=== PATIENT | male | born 1965 | race Caucasian/White ===

== ENCOUNTER 2019-06-12 05:30 | Observation (INO) ==
--- NOTE | 2019-06-04 12:16 | PAT Medication Instructions ---
Medication Instructions Date of Service June 04, 2019 Home Medications multivitamin 1 cap PO QAM DO NOT take the morning of surgery multivitamin 1 cap PO QAM Other Notes If you have any questions please call us at [phone] or [phone] or [phone] or [phone]
--- NOTE | 2019-06-05 13:06 | Anesthesiology Consultation ---
Date of Service June 05, 2019 Assessment & Plan (1) Encounter for pre-operative examination: Chart Review Chart Review: Acceptable Risk for Surgery (pending preop labs) and Patient seen in Pre Admission Testing Teaching & Discussion Pre-Anesthesia Teaching/Discussion Notes: Instructed NPO after midnight before surgery,except medications with 15 cc of water. Medication instructions provided according to the PAT guidelines. History Surgery Operation Date: 06/12/19 07:30 Proposed Procedures p Robotic Assisted Laparoscopic Radical Prostatectomy, Bilateral Pelvic Lymph Node Dissection, Suprapubic Catheter - Skip Garcia MD Height/Weight Height: 6 ft 1 in Weight: 87.7 kg Allergies Allergy/AdvReac Type Severity Reaction Status Date / Time Penicillins Allergy Unknown UNKNOWN Verified 06/05/19 13:15 ( CHILD) Medications Home Medications Medication Instructions Recorded Confirmed Last Taken multivitamin 1 cap PO QAM 06/03/19 06/03/19 Unknown Past Medical History Medical History Malignant neoplasm of prostate Exercise / Class Metabolic Activity II 4-5 Yardwork/Stairs/Walk up hill Past Family History Family History Son Diabetes Father Heart disease Past Surgical History Surgical History Hx of prostate biopsy Hx of wisdom tooth extraction Past Anesthesia History No Hx of Anesthesia Complications and No Family Hx of Anesthesia Complications History of PONV No Hx of PONV and No Hx of Motion Sickness Social History Smoking Status: Never smoker Do You Dip or Chew Tobacco: No Hx Alcohol Use: Yes Alcohol type: wine alcohol intake frequency: holidays/special occasions only Hx Substance Use: No substance use type: does not use Review of Systems Patient denies chest pain, shortness of breath, dyspnea on exertion, cough, wheezing, palpitations. Physical Exam Vital Signs VITALS BP 119/74 P 66 TEMP 98.4 SP02 97%RA RESP 18 PHYSICAL Full neck and c-spine range of motion. Full TMJ range of motion. TMD 4 finger breaths Mallampati Score 1 Dentition: missing molars Lungs: clear throughout to auscultation Cardiac: regular rate and rhythm, no murmurs noted Spine: normal Carotid arteries: negative bruit Extremities: no edema Testing Electrocardiogram Date: 09/24/19 NSR at 67bpm. Possible LAE. iRBBB. Chest X-Ray Date: 06/05/19 Findings: + NAD
--- NOTE | 2019-06-05 13:59 | XRay Report ---
XR chest Pre-admission PA/Lat CLINICAL HISTORY: pat preoperative evaluation COMPARISON STUDY: No previous studies for comparison. FINDINGS: The bones soft tissues and hemidiaphragms are normal. The cardiomediastinal silhouette is n ormal. The lungs are clear. The pulmonary vasculature is normal. IMPRESSION: Negative chest. ACT 112: Negative or not required by law. The above report was generated using voice recognition software. It may contain grammatical, syntax or spelling errors. Electronically signed by: Mohsen Hines M.D. 06/05/2019 1:58 PM
[2019-06-05 15:07] LABS: Basophils # (auto) 0.04 K/uL (0-0.2); Basophils % (auto) 0.8 %; Hematocrit (blood only) 43.9 % (42-52); Hemoglobin 15.2 g/dL (14.0-18.0); Lymphocytes # (auto) 1.12 K/uL (1.2-3.4); Lymphocytes % (auto) 22.6 %; Mean Corpuscular Hemoglobin 30.9 pg (25-34); Mean Corpuscular Hgb Conc 34.6 g/dL (32-36); Mean Corpuscular Volume 89.2 fL (80-100); Mean Platelet Volume 11.5 fL (7.4-10.4); Monocytes # (auto) 0.28 K/uL (0.11-0.59); Monocytes % (auto) 5.7 %; Neutrophils # (auto) 3.31 K/uL (1.4-6.5); Neutrophils % (auto) 66.9 %; Platelet Count 194 K/uL (130-400); RDW Coefficient of Variation 12.8 % (11.5-14.5); RDW Standard Deviation 41.5 fL (36.4-46.3); Red Blood Count 4.92 M/uL (4.7-6.1); White Blood Count 4.95 K/uL (4.8-10.8)
[2019-06-05 15:13] LABS: BUN Creatinine Ratio 14.2 (10-20); Calcium 9.1 mg/dl (8.5-10.1); Creatinine Clr Calc Pharmacy 107.4 ml/min; Est GFR (African American) 111.2; Potassium 3.5 mmol/L (3.5-5.1)
[2019-06-12] MEDS ORDERED: HEPARIN SOD 5,000 UNIT/0.5 ML VIAL SQ SCH (06:00)
[2019-06-12] MEDS ORDERED: CEFAZOLIN 2000MG 2,000 MG/15 ML SYR IV SCH (06:00)
[2019-06-12] MEDS ORDERED: LACTATED RINGER'S 1,000 ML IV SCH (06:00)
[2019-06-12] MEDS ORDERED: ACETAMINOPHEN 1000 MG/100 ML IV IV SCH (06:00)
[2019-06-12] MEDS ORDERED: fentaNYL citrate 100 MCG/2 ML VIAL ONE (06:44)
[2019-06-12] MEDS ORDERED: ONDANSETRON INJ 2 MG/ML 2 ML VIAL ONE ×2 (06:44→10:55)
[2019-06-12] MEDS ORDERED: LIDOCAINE HCL 2% 2 ML VIAL/AMP(20MG/ML) INFIL ONE (06:44)
[2019-06-12] MEDS ORDERED: ROCURONIUM BROMIDE 10 MG/ML 5 ML VIAL ONE ×4 (06:44→09:50)
[2019-06-12] MEDS ORDERED: DEXAMETHASONE SOD INJ 4 MG/ML VIAL ONE (06:44)
[2019-06-12] MEDS ORDERED: NEOSTIGMINE METHYLSULFATE 5 MG/5 ML SYR ONE (06:44)
[2019-06-12] MEDS ORDERED: GLYCOPYRROLATE 0.2 MG/ML VIAL ONE (06:44)
[2019-06-12] MEDS ORDERED: PROPOFOL IV EMULSION 10 MG/ML 20 ML VIAL IV ONE ×2 (06:44→11:27)
[2019-06-12] MEDS ORDERED: KETOROLAC 30 MG/ML VIAL ONE (06:44)
[2019-06-12] MEDS ORDERED: MIDAZOLAM HCL 1 MG/ML 2ML VIAL ONE (06:44)
--- NOTE | 2019-06-12 06:56 | History & Physical Bridge Note ---
Date of Service June 12, 2019 History & Physical Bridge Note I have examined the patient, reviewed the History & Physical and in the interval since the performance of the History & Physical I have noted the following changes of clinical significance: no changes noted
[2019-06-12] MEDS ORDERED: BUPIVACAINE 0.5 % 5 MG/1 ML MPF 30ML VIAL ONE (07:20)
[2019-06-12] MEDS ORDERED: HYDROmorphone INJ 2 MG/ML SYR/VIAL ONE (07:53)
[2019-06-12] MEDS ORDERED: fentaNYL citrate 100 MCG/2 ML VIAL IV PRN (08:14)
[2019-06-12] MEDS ORDERED: ONDANSETRON INJ 2 MG/ML 2 ML VIAL IV PRN ×2 (08:14→13:09)
[2019-06-12] MEDS ORDERED: ePHEDrine sulfate 50 MG/ML AMP IV PRN (08:14)
[2019-06-12] MEDS ORDERED: METOCLOPRAMIDE HCL INJ 5 MG/ML 2 ML VIAL IV PRN (08:14)
[2019-06-12] MEDS ORDERED: HYDROmorphone INJ 2 MG/ML SYR/VIAL IV PRN (08:14)
[2019-06-12] MEDS ORDERED: PROMETHAZINE HCL 12.5 MG in SODIUM CHLORIDE 0.9% 50 ML IV PRN (08:14)
[2019-06-12] MEDS ORDERED: ATROPINE SULFATE 0.1 MG/ML 10ML SYR IV PRN (08:14)
[2019-06-12] MEDS ORDERED: SURGICEL ABSORB HEMOSTAT 2IN X 14IN TOP ONE (08:47)
[2019-06-12] MEDS ORDERED: FLOSEAL HEMOSTATIC MATRIX 10ML TOP ONE (09:41)
--- NOTE | 2019-06-12 11:51 | Operative Report ---
PG Post Operative Report Pre & Post Diagnosis Operation Date: 06/12/19 07:30 Pre-Op Diagnosis: Prostate Cancer Post-Op Diagnosis: Prostate Cancer I identified the patient and participated in the time-out.: Yes Procedure Operation Date: 06/12/19 07:30 Actual Procedures p Robotic Assisted Laparoscopic Radical Retropubic Prostatectomy, Bilateral Pelvic Lymph Node Dissection, Vesicostomy with repair - Skip Garcia MD Surgeon Skip Garcia MD Shoemaker Apprentice Zak Ross Estimated Blood Loss 100 Findings Consistent with Post-Op Diagnosis Specimens Prostate + SVs, periprostatic fat, R obturator LN, R external iliac nodes, L obturator nodes, bladder neck margin Description of Procedure See above I attest to the content of the Intraoperative Record and any orders documented therein. Any exceptions are noted below.
[2019-06-12 12:29] LABS: Hematocrit (blood only) 41.9 % (42-52); Hemoglobin 14.4 g/dL (14.0-18.0); Mean Corpuscular Hemoglobin 30.4 pg (25-34); Mean Corpuscular Volume 88.4 fL (80-100); Mean Platelet Volume 10.8 fL (7.4-10.4); Platelet Count 181 K/uL (130-400); RDW Coefficient of Variation 12.4 % (11.5-14.5); RDW Standard Deviation 40.4 fL (36.4-46.3); Red Blood Count 4.74 M/uL (4.7-6.1); White Blood Count 11.77 K/uL (4.8-10.8)
[2019-06-12 12:35] LABS: Mean Corpuscular Hgb Conc 34.4 g/dL (32-36)
[2019-06-12 12:46] LABS: BUN Creatinine Ratio 19.5 (10-20); Calcium 8.8 mg/dl (8.5-10.1); Creatinine Clr Calc Pharmacy 95.9 ml/min; Est GFR (Non-African American) 83.7; Potassium 4.2 mmol/L (3.5-5.1)
[2019-06-12 12:52] LABS: Basophils # (auto) 0.02 K/uL (0-0.2); Basophils % (auto) 0.2 %; Eosinophils # (auto) 0.01 K/uL (0-0.5); Eosinophils % (auto) 0.1 %; Immature Granulocytes # (auto) 0.02 K/uL (0.00-0.02); Immature Granulocytes % (auto) 0.2 %; Lymphocytes # (auto) 0.51 K/uL (1.2-3.4); Lymphocytes % (auto) 4.3 %; Monocytes # (auto) 0.07 K/uL (0.11-0.59); Monocytes % (auto) 0.6 %; Neutrophils # (auto) 11.14 K/uL (1.4-6.5); Neutrophils % (auto) 94.6 %
[2019-06-12] MEDS ORDERED: OXYCODONE HCL IR 5 MG TAB (IMMEDIATE RELEASE) PO PRN ×2 (13:09)
[2019-06-12] MEDS ORDERED: HYDROmorphone INJ 1 MG/ML SYRINGE IV PRN ×2 (13:09)
[2019-06-12] MEDS ORDERED: OXYBUTYNIN CHLORIDE 5 MG TAB PO PRN (13:09)
--- NOTE | 2019-06-12 13:19 | Anesthesiology Progress Note ---
Date of Service June 12, 2019 Anesthesia Post Procedure Vital Signs Vital Signs: Temp Pulse Pulse Resp BP Pulse Ox 06/12/19 13:00 36.8 C 94 H 13 139/72 95 06/12/19 12:45 37.1 C 75 16 139/68 97 06/12/19 12:35 72 12 149/68 H 98 06/12/19 12:25 78 12 135/70 98 06/12/19 12:15 74 12 130/63 97 06/12/19 12:06 36.3 C L 84 16 108/63 96 06/12/19 06:04 37.0 C 83 20 132/68 99 Transfer of Care Handoff Completed per policy Notes Mental Status: alert / awake / arousable and participated in evaluation Patient Amnestic to Procedure: Yes Nausea / Vomiting: adequately controlled Pain: adequately controlled Airway Patency, RR, SpO2: stable & adequate BP & HR: stable & adequate Hydration State: stable & adequate Anesthetic Complications: no major complications apparent
[2019-06-12] MEDS: ACETAMINOPHEN 1,000 MG/100 ML VIAL IV SCH ×2 (13:49→21:50)
--- NOTE | 2019-06-12 13:55 | Operative Report ---
PG Post Operative Report Pre & Post Diagnosis Operation Date: 06/12/19 07:30 Pre-Op Diagnosis: High-volume Femi 4+3 prostate Cancer with a pretreatment PSA of 13 Post-Op Diagnosis: Same. Surgeon: Dr. Skip Garcia. Outside Installer Apprentice: Valerie PHELAN. Outside Installer Apprentice present throughout the case for suction, retraction, needle and instrument passage, division of suture, port placement, intra-abdominal access, patient positioning and general patient safety. Anesthesia: General anesthesia with endotracheal ablation plus local at port sites. Drains left in place: 20 Welsh silicone Demarco catheter with 15 cc of sterile water in the balloon, #10 RICHMOND drain in left lower quadrant. Specimen sent to pathology: Prostate plus seminal vesicles, bladder neck margin, periprostatic fat, right obturator lymph nodes, right external iliac lymph nodes, left obturator lymph nodes. Findings: Significant periprostatic inflammation, posterior small trigonal vesicotomy identified and repaired in 2 layers, watertight anastomosis. IV fluids: 1500 cc of crystalloid. I identified the patient and participated in the time-out.: Yes Procedure Operation Date: 06/12/19 07:30 Actual Procedures p Robotic Assisted Laparoscopic Radical Retropubic Prostatectomy, Bilateral Pelvic Lymph Node Dissection, Vesicostomy with repair - Skip Garcia MD Brief history: Patient is a pleasant 53-year-old male who underwent a prostate biopsy by Dr. Ulloa for an elevated PSA of 13 without clear nodularity of the prostate. He was found to have high volume Bruneau 3 and 4 on all but 3 cores. After discussion of risks and benefits of various forms of intervention he is decided upon a robotic prostatectomy to manage his disease. [facility] suggest a significant risk of lymph node involvement and extracapsular extension. However, his prostate MRI suggested a lack of involvement of the neurovascular bundles. Please see H&P for further details. Intravenous cephalosporins are provided for antibiotic coverage and SCDs used for DVT prophylaxis as well as subcutaneous heparin. Intravenous Tylenol is provided for perioperative analgesia. Informed consent reviewed preoperatively with patient and family today. Procedure: Patient was properly identified and brought into the operative suite after identification of appropriate consent in the chart. General anesthesia with endotracheal ablation was initiated and patient was prepped and draped in the standard fashion for this procedure. Full timeout procedure was followed. All port sites were anesthetized with local prior to initiation of incision. Supraumbilical transverse incision was made and a 0 degree laparoscope was used via visual obturator to enter the abdomen under direct visualization. Abdomen was insufflated to 15 mmHg and full laparoscopy was performed demonstrating no worrisome intra-abdominal variance and anatomy. No evidence of any injury to the intra-abdominal structures on it placement of the scope was noted. Ports were placed for a fourth arm robotic template including 2 left-sided 8 mm robotic ports, one right-sided 8 mm robotic port and a 5 and 12 mm library services assistant port. Patient was placed in Trendelenburg and robot was brought in and docked. 0 degree lens was used to free the sigmoid attachments which were noted to be few in number and then dropped the bladder down to the level of the pubic bone. Early hernia defects were appreciated on both sides without virginia hernia. Prostate was defatted and superficial prostatic vein was cauterized. Periprostatic fat was sent for pathologic analysis. Endopelvic fascia was sharply entered on both sides and lateral dissection was carried out to the level of the apex of the prostate. At this point significant periprosthetic inflammation was appreciated. Prostate was noted to be severely adherent to the levator muscles toward the apex of the gland on both sides which was felt to be somewhat worrisome. Dorsal vein was skeletonized and controlled using an 0 Vicryl suture on a CT1 needle. After this was complete a 30 degree down lens was used to visualize the bladder neck and initiate bladder neck dissection. Again, significant inflammation in the bladder neck tissue was appreciated. Plane of dissection was adjusted cephalad to avoid cutting through visually abnormal or involved tissue. A portion of bladder neck tissue was sent as a separate bladder neck margin for clarification of his pathologic status. However, seen that a relatively generous cuff of bladder was felt to be taken frozen section was not sent. After the bladder was entered the Demarco catheter was used for anterior traction of the prostate gland with the fourth arm. Posterior bladder neck was divided and dropped in the midline. Again, significant inflammation was encountered and on reaching the vas deferens a small midline vesicotomy at the level of the trigone of the bladder was appreciated. Ureteral orifices were appreciated to be well clear of the injury. Vas deferens were circumscribed bilaterally and also noted to be somewhat inflamed. These were divided and then used for anterior traction of the prostate. Seminal vesicles were noted to be dilated bilaterally were dissected free of their surrounding tissue intact. Cold scissors were used in the midline to drop the rectum with great caution seen the previous vesicotomy and severe inflammation in this plane as well. Inferior bladder pedicles were able to be controlled using Weck clips and cold scissors and the prostatic pedicles were controlled in a similar fashion. Care was taken to avoid placing any Weck clips in the area of the anastomosis. Cold scissors were then used to perform a partial nerve sparing dissection on both sides, left greater than right. On the right side more inflammation was present and some of the tissue was noted to be stuck to the prostate. Dorsal vein was divided using hot scissors and the urethra was skeletonized. Apical tissue was again noted to be attached to the levators, inflamed and somewhat abnormal in appearance. Urethra was divided and remaining thickened rectourethralis fibers were taken. Prostate was able to be delivered from the pelvis and placed within an Endo Catch bag for retrieval at the end of the case. Pelvis was filled with saline irrigation and rectum was in sufflated, distending well and demonstrating no evidence of injury. FloSeal tissue sealant was placed over the prostate bed for additional hemostasis. At this point the vesicotomy was closed in the midline using 4-0 Vicryl in a [id number] fashion for the deeper lateral and a second interrupted Lembert style suture with a 3-0 Vicryl for additional reinforcement. Closure was not taken lateral to the level of the ureters. This was noted on inspection to appear well closed and watertight. Attention was then turned to the pelvic lymph node dissection on both sides. This was initiated on the right-hand side using the confines of the obturator fossa including the external iliac vein, pelvic sidewall and obturator nerve. Weck clips and cautery were used for small vessels and large lymphatics as necessary. No evidence of injury to the obturator nerve was appreciated after completion of case. These were handed off and brought out through the 10 mm library services assistant port. Some abnormal appearing tissue over the external iliac vessels was also taken and sent as external iliac nodes. Attention was then turned to the left-hand side where again the confines of the obturator fossa were used for dissection. However, atypical appearance to the fatty/leeanna tissue was noted without clear lymph node chains despit easy identification of the external iliac vein and obturator nerve. Weck clips were used to isolate the tissue which was then excised and sent as left obturator lymph node tissue. Additional FloSeal tissue sealant was placed in the obturator fossa. After the tissue had been removed from the abdomen by the library services assistant attention was turned to the anastomotic closure. A double-armed V lock suture was used to create a circumferential running anastomosis between the patient's bladder neck and urethral stump. Both of these were noted to have somewhat abnormal appearing tissue but they were able to be well apposed with a Demarco catheter preferentially entering the bladder. The closure of vesicotomy was appreciated be intact after the bladder had been brought down to the urethra. A 20 Welsh silicone catheter was visualized entering the bladder prior to completion of the closure and 10 cc of sterile water were placed in the balloon. Anastomosis was tested with greater than 120 cc of sterile irrigant and noted to be watertight. An additional 5 cc of sterile water were placed within the balloon. Seen the difficulties with the patient's bladder repair and anastomosis decision was made not to place a suprapubic tube. Fourth arm was removed and a #10 RICHMOND drain was brought in via the fourth arm port. This was placed within the confines of the pelvis while avoiding placing it directly over the anastomosis. Robotic instruments were removed and robot was de-docked. Camera was brought in via the 12 mm library services assistant port and the string to the Endo Catch bag was brought up through the 12 mm supraumbilical port. Ports were removed and the supraumbilical port was enlarged sufficiently to allow for easy removal of the specimen bag. This was then closed after removal of excess carbon dioxide from the abdomen using an 0 Vicryl suture on a UR 5 needle in a running fashion. Subcutaneous tissues were closed using 3-0 Vicryl and 4-0 Monocryl was used for skin closure. 2-0 silk was used to secure the RICHMOND drain in place. Dermabond dressing was placed over the skin closures and RICHMOND was placed to bulb suction. Demarco catheter was placed to gravity drainage. Anesthesia was reversed and patient was transferred to the recovery room in stable condition. Follow-up CARE: Patient be admitted to the floor for standard postoperative management. Surgeon Skip Garcia MD Outside Installer Apprentice Zak Ross Estimated Blood Loss 100 Findings Consistent with Post-Op Diagnosis Specimens See above Description of Procedure See above I attest to the content of the Intraoperative Record and any orders documented therein. Any exceptions are noted below.
[2019-06-12] MEDS: LACTATED RINGER'S 1,000 ML IV SCH ×2 (15:15→23:38)
[2019-06-12] MEDS: CEFAZOLIN 2000MG 2,000 MG/15 ML SYR IV SCH ×2 (16:27→23:38)
--- NOTE | 2019-06-12 16:27 | Progress Note ---
Date of Service June 12, 2019 Assessment & Plan Admission and Anticipated Discharge Date Admission Date: June 12, 2019 Subjective Patient seen in PM rounds. Numerous family at bedside, patient resting, somewhat somnolent in good spirits. Intraoperative findings reviewed. Patient in no acute distress. S1 S2 Good respiratory excursion bilaterally. Abdomen soft, nondistended with incisions clean dry and intact, with some serous drainage from the supraumbilical incision. RICHMOND drain in place with minimal serosanguineous output. Labs as noted below. A/P 53-year-old male postoperative day #0 status post robotic prostatectomy, bilateral pelvic lymph node dissection. Doing well postoperatively. Patient encouraged to be out of bed to chair and possibly ambulate this afternoon. Clear liquid today. Will advance diet and activity tomorrow. Contact nursing staff with any difficulties in the immediate postoperative period. Laboratory Results - last 24 hr 06/12/19 06/12/19 12:10 12:10 WBC 11.77 H RBC 4.74 Hgb 14.4 Hct 41.9 L MCV 88.4 MCH 30.4 MCHC 34.4 RDW Std Deviation 40.4 RDW Coeff of Eliecer 12.4 Plt Count 181 MPV 10.8 H Immature Gran % (Auto) 0.2 Neut % (Auto) 94.6 Lymph % (Auto) 4.3 Harnett % (Auto) 0.6 Eos % (Auto) 0.1 Baso % (Auto) 0.2 Immature Gran # (Auto) 0.02 Neut # (Auto) 11.14 H Lymph # (Auto) 0.51 L Harnett # (Auto) 0.07 L Eos # (Auto) 0.01 Baso # (Auto) 0.02 Sodium 138 Potassium 4.2 Chloride 104 Carbon Dioxide 26 Anion Gap 8.0 BUN 20 H Creatinine 1.03 Est Cr Clr Drug Dosing 95.9 Est GFR ( Amer) 97.0 Est GFR (Non-Af Amer) 83.7 BUN/Creatinine Ratio 19.5 Glucose 117 H Calcium 8.8 Results & Data ([facility]) Vital Signs (Past 12 Hours) Vital Signs Temp Pulse Pulse Resp BP Pulse Ox 06/12/19 16:11 36.5 C 76 16 128/72 96 06/12/19 15:05 36.6 C 87 18 144/71 H 96 06/12/19 13:57 83 16 137/70 94 06/12/19 13:26 78 16 130/71 93 06/12/19 13:00 36.8 C 94 H 13 139/72 95 06/12/19 12:45 37.1 C 75 16 139/68 97 06/12/19 12:35 72 12 149/68 H 98 06/12/19 12:25 78 12 135/70 98 06/12/19 12:15 74 12 130/63 97 06/12/19 12:06 36.3 C L 84 16 108/63 96 06/12/19 06:04 37.0 C 83 20 132/68 99 PG Care Time/CCT Total # of Minutes Spent Total Time Spent with Patient: Total time spent is greater than 50% in coordination of care (as documented) at patient's floor/unit and/or counseling patient: Coding Level of Care Code None
[2019-06-12] MEDS: DOCUSATE SODIUM 100 MG CAP PO SCH (20:22)
[2019-06-12] MEDS: FAMOTIDINE 10 MG TABLET PO SCH (20:22)
[2019-06-12] MEDS: HEPARIN SOD 5,000 UNIT/0.5 ML VIAL SQ SCH (20:22)
[2019-06-13] MEDS: ACETAMINOPHEN 1,000 MG/100 ML VIAL IV SCH (05:21)
[2019-06-13 05:35] LABS: Basophils # (auto) 0.01 K/uL (0-0.2); Basophils % (auto) 0.1 %; Eosinophils # (auto) 0.01 K/uL (0-0.5); Eosinophils % (auto) 0.1 %; Hematocrit (blood only) 40.2 % (42-52); Hemoglobin 13.7 g/dL (14.0-18.0); Immature Granulocytes # (auto) 0.02 K/uL (0.00-0.02); Immature Granulocytes % (auto) 0.2 %; Lymphocytes # (auto) 1.08 K/uL (1.2-3.4); Lymphocytes % (auto) 11.3 %; Mean Corpuscular Hemoglobin 30.5 pg (25-34); Mean Corpuscular Hgb Conc 34.1 g/dL (32-36); Mean Corpuscular Volume 89.5 fL (80-100); Mean Platelet Volume 10.6 fL (7.4-10.4); Monocytes # (auto) 0.94 K/uL (0.11-0.59); Monocytes % (auto) 9.8 %; Neutrophils # (auto) 7.53 K/uL (1.4-6.5); Neutrophils % (auto) 78.5 %; Platelet Count 204 K/uL (130-400); RDW Coefficient of Variation 12.7 % (11.5-14.5); RDW Standard Deviation 41.2 fL (36.4-46.3); Red Blood Count 4.49 M/uL (4.7-6.1); White Blood Count 9.59 K/uL (4.8-10.8)
[2019-06-13 06:06] LABS: BUN Creatinine Ratio 13.7 (10-20); Calcium 8.3 mg/dl (8.5-10.1); Creatinine Clr Calc Pharmacy 105.1 ml/min; Est GFR (African American) 108.4; Est GFR (Non-African American) 93.5; Potassium 4.2 mmol/L (3.5-5.1)
--- NOTE | 2019-06-13 07:14 | Urology Progress Note ---
Date of Service June 13, 2019 Assessment & Plan (1) Malignant neoplasm of prostate: A/P 53-year-old male postoperative day #1 status post robotic prostatectomy with bilateral pelvic lymph node dissection. Intraoperative findings again reviewed with patient vocalizes understanding. Will await final pathology and healing. Outpatient appointments in place. Advance diet and activity today, doing well. Likely DC RICHMOND tube and DC home later today pending evaluation by nurse practitioners. Outpatient limitations and instructions reviewed. Subjective 53-year-old male postoperative day #1 status post robotic prostatectomy and bilateral pelvic lymph node dissection. Patient reports that he was out of bed to chair last night, taking clears without difficulties, good appetite this morning. He reports appropriate incisional pain no other specific complaints. Lab work within normal limits, past notes reviewed. RICHMOND output acceptable, tolerating whitaker well. Review of Systems Constitutional: no fever and no chills Eyes: no diplopia Ear, Nose, Mouth, Throat: no ear trauma Respiratory: no hemoptysis Cardiovascular: no chest pain Gastrointestinal: + abdominal pain (Minimal); no nausea and no vomiting Genitourinary: + as per Subjective / HPI Integumentary: no acne and no boil Neurologic: no paralysis Psychiatric: no hopelessness Allergy / Immunological: no tongue swelling Physical Exam Constitutional: well developed and well nourished; no acute distress Eyes: eyes not dysmorphic ENMT: Ears: no external ear abnormality Neck: trachea midline; no anterior neck swelling Respiratory: no respiratory distress and does not use accessory muscles Cardiovascular: Vessels: radial pulses present Gastrointestinal (Abdomen): Inspection/Auscultation: abdomen not distended Percussion/Palpation: abdomen soft; abdomen nontender inc c/d/i, RICHMOND in place Musculoskeletal: Head/Neck/Chest: normocephalic and neck supple Skin: normal turgor Neurologic: awake; not obtunded Psychiatric: Orientation: oriented x 3 Lymphatic: no lymphadenopathy Results & Data Vital Signs (Past 12 Hours) Vital Signs Temp Pulse Resp BP Pulse Ox 06/13/19 03:22 37.1 C 70 18 121/68 96 06/12/19 23:07 37 C 85 18 127/72 96 06/12/19 19:20 36.8 C 75 16 129/72 97 Laboratory Results Laboratory Results - last 48 hr 06/12/19 06/12/19 06/13/19 12:10 12:10 05:18 WBC 11.77 H 9.59 RBC 4.74 4.49 L Hgb 14.4 13.7 L Hct 41.9 L 40.2 L MCV 88.4 89.5 MCH 30.4 30.5 MCHC 34.4 34.1 RDW Std Deviation 40.4 41.2 RDW Coeff of Eliecer 12.4 12.7 Plt Count 181 204 MPV 10.8 H 10.6 H Immature Gran % (Auto) 0.2 0.2 Neut % (Auto) 94.6 78.5 Lymph % (Auto) 4.3 11.3 Upson % (Auto) 0.6 9.8 Eos % (Auto) 0.1 0.1 Baso % (Auto) 0.2 0.1 Immature Gran # (Auto) 0.02 0.02 Neut # (Auto) 11.14 H 7.53 H Lymph # (Auto) 0.51 L 1.08 L Upson # (Auto) 0.07 L 0.94 H Eos # (Auto) 0.01 0.01 Baso # (Auto) 0.02 0.01 Sodium 138 Potassium 4.2 Chloride 104 Carbon Dioxide 26 Anion Gap 8.0 BUN 20 H Creatinine 1.03 Est Cr Clr Drug Dosing 95.9 Est GFR ( Amer) 97.0 Est GFR (Non-Af Amer) 83.7 BUN/Creatinine Ratio 19.5 Glucose 117 H Calcium 8.8 06/13/19 05:18 WBC RBC Hgb Hct MCV MCH MCHC RDW Std Deviation RDW Coeff of Eliecer Plt Count MPV Immature Gran % (Auto) Neut % (Auto) Lymph % (Auto) Upson % (Auto) Eos % (Auto) Baso % (Auto) Immature Gran # (Auto) Neut # (Auto) Lymph # (Auto) Upson # (Auto) Eos # (Auto) Baso # (Auto) Sodium 137 Potassium 4.2 Chloride 104 Carbon Dioxide 29 Anion Gap 4.0 BUN 13 Creatinine 0.94 Est Cr Clr Drug Dosing 105.1 Est GFR ( Amer) 108.4 Est GFR (Non-Af Amer) 93.5 BUN/Creatinine Ratio 13.7 Glucose 99 Calcium 8.3 L PG Care Time/CCT Total # of Minutes Spent Total Time Spent with Patient: Total time spent is greater than 50% in coordination of care (as documented) at patient's floor/unit and/or counseling patient: Coding Level of Care Code 39867 Subseq Hosp Care Lvl 2 Diagnoses Malignant neoplasm of prostate C61
[2019-06-13 07:33] VITALS: O2SAT 99
[2019-06-13] MEDS: LACTATED RINGER'S 1,000 ML IV SCH (07:36)
[2019-06-13] MEDS: HEPARIN SOD 5,000 UNIT/0.5 ML VIAL SQ SCH (08:44)
[2019-06-13] MEDS: FAMOTIDINE 10 MG TABLET PO SCH (08:44)
[2019-06-13] MEDS: DOCUSATE SODIUM 100 MG CAP PO SCH (08:44)
[2019-06-13] MEDS ORDERED: MULTIVITAMIN TAB PO SCH (09:00)
--- NOTE | 2019-06-13 09:17 | Anesthesiology Progress Note ---
Date of Service June 13, 2019 Anesthesia Post Procedure Vital Signs Vital Signs: Temp Pulse Pulse Resp BP BP Pulse Ox 06/13/19 07:27 37.2 C 68 14 122/78 99 06/13/19 03:22 37.1 C 70 18 121/68 96 06/12/19 23:07 37 C 85 18 127/72 96 06/12/19 19:20 36.8 C 75 16 129/72 97 06/12/19 16:11 36.5 C 76 16 128/72 96 06/12/19 15:05 36.6 C 87 18 144/71 H 96 06/12/19 13:57 83 16 137/70 94 06/12/19 13:26 78 16 130/71 93 06/12/19 13:00 36.8 C 94 H 13 139/72 95 06/12/19 12:45 37.1 C 75 16 139/68 97 06/12/19 12:35 72 12 149/68 H 98 06/12/19 12:25 78 12 135/70 98 06/12/19 12:15 74 12 130/63 97 06/12/19 12:06 36.3 C L 84 16 108/63 96 Notes Mental Status: alert / awake / arousable and participated in evaluation Patient Amnestic to Procedure: Yes Nausea / Vomiting: adequately controlled Pain: adequately controlled Airway Patency, RR, SpO2: stable & adequate BP & HR: stable & adequate Hydration State: stable & adequate Anesthetic Complications: no major complications apparent and Pt Satisfied with anesthetic care
--- NOTE | 2019-06-13 09:21 | Urology Progress Note ---
Date of Service June 13, 2019 Assessment & Plan (1) Malignant neoplasm of prostate: 53yo M POD #1 status post robotic prostatectomy with bilateral pelvic lymph node dissection. Continues to progress very well this AM Sitting up in chair, awaiting breakfast. He feels ready for more substantial diet. Denies any issues or concerns. Discharge instructions and expected clinical course reviewed, verbalizes great understanding. Okay to discharge after lunch if patient continues to progress as anticipated. Will d/c [place] drain prior to discharge home. Results & Data Vital Signs (Past 12 Hours) Vital Signs Temp Pulse Pulse Resp BP BP Pulse Ox 06/13/19 07:27 37.2 C 68 14 122/78 99 06/13/19 03:22 37.1 C 70 18 121/68 96 06/12/19 23:07 37 C 85 18 127/72 96 PG Care Time/CCT Total # of Minutes Spent Total Time Spent with Patient: Total time spent is greater than 50% in coordination of care (as documented) at patient's floor/unit and/or counseling patient: Coding Level of Care Code None Diagnoses Malignant neoplasm of prostate C61
[2019-06-13 11:42] VITALS: BP 120/88; PULSE 76; TEMP 99.3
--- NOTE | 2019-07-09 11:51 | Discharge Summary ---
Date of Service July 09, 2019 Admission HPI Per Admitting Provider 53 yo male with a history of prostate cancer for [facility]. See H&P for further details. Admission Exam (Per Admitting) Constitutional well developed and well nourished; no acute distress Eyes eyes not dysmorphic ENMT Ears: no external ear abnormality Neck trachea midline; no anterior neck swelling Respiratory no respiratory distress and does not use accessory muscles Cardiovascular Vessels: radial pulses present Gastrointestinal (Abdomen) Inspection/Auscultation: abdomen not distended Percussion/Palpation: abdomen soft; abdomen nontender Musculoskeletal Head/Neck/Chest: normocephalic and neck supple Skin normal turgor Neurologic awake; not obtunded Psychiatric Orientation: oriented x 3 Lymphatic no lymphadenopathy Discharge Data Procedures Performed Operation Date: 06/12/19 07:30 Actual Procedures p Robotic Assisted Laparoscopic Radical Retropubic Prostatectomy, Bilateral Pelvic Lymph Node Dissection, Vesicostomy with repair - Skip Garcia MD Hospital Course (1) Malignant neoplasm of prostate: 53yo M POD #1 status post robotic prostatectomy with bilateral pelvic lymph node dissection. Continues to progress very well this AM Sitting up in chair, awaiting breakfast. He feels ready for more substantial diet. Denies any issues or concerns. Discharge instructions and expected clinical course reviewed, verbalizes great understanding. Okay to discharge after lunch if patient continues to progress as anticipated. Will d/c [place] drain prior to discharge home. Discharge Instructions See DC instructions Coding Level of Care Code D/C Day Management <30 mins Diagnoses Malignant neoplasm of prostate C61
== END 2019-06-13 14:41 | disposition home or self-care (01) ==
LOC: ASU 05:30 → 3W 11:51 → INTOOBSV 11:51